=== PATIENT | female | born 1955 | race Caucasian/White ===

== ENCOUNTER → 2017-02-04 | Outpatient (CLI) | payer OTHER ==
[~2017-02-04] VITALS: Ht 160 cm; Wt 56.2 kg
[~2017-02-04] MED LIST: BAYER ASPIRIN325 M1 PO; CYMBALTA60 MG PO; DAILY MULTIPLE1 EACH PO; DIGOXIN125 MCG PO; DURAGESIC50 MCG TD; DURAGESIC75 MCG TD; ENALAPRIL MALEAT5 M1 PO; HYDROCODON-ACE1 EAC7 PO; LANOXIN,DIGI0.125 MG PO; LIPITOR80 MG PO; LO-DOSE ASPIRIN81 M2 PO; LOVASTATIN40 MG PO; METHYLPREDNISOLO4 MG PO; METOPROLOL SUCC25 MG PO; PLAVIX75 MG PO; SOTALOL160 MG PO; TOPROL XL50 MG PO; VICODIN ES 71 TABLET PO
== END | disposition home or self-care (01) ==
LOC: AMB 06:45
PROC: 0DJD8ZZ Inspection of Lower Intestinal Tract, Via Natural or Artificial Opening Endoscopic (ICD-10-PCS; principal; 2017-02-04)
DX: Z12.11 Encounter for screening for malignant neoplasm of colon (principal); I25.10 Atherosclerotic heart disease of native coronary artery without angina pectoris; Z95.810 Presence of automatic (implantable) cardiac defibrillator; J44.9 Chronic obstructive pulmonary disease, unspecified; F17.210 Nicotine dependence, cigarettes, uncomplicated; E78.00 Pure hypercholesterolemia, unspecified; I10 Essential (primary) hypertension; M51.26 Other intervertebral disc displacement, lumbar region; M54.30 Sciatica, unspecified side; C91.11 Chronic lymphocytic leukemia of B-cell type in remission; Z82.49 Family history of ischemic heart disease and other diseases of the circulatory system; Z83.3 Family history of diabetes mellitus; Z79.82 Long term (current) use of aspirin
CPT/HCPCS: 93005; J1170; J2250

== ENCOUNTER 2018-02-12 09:58 | Emergency (ER) | payer OTHER ==
[~2018-02-12] VITALS: Ht 157.5 cm; Wt 52.7 kg
[2018-02-12 10:37] LABS: HEMATOCRIT 45.9 % (36.0-46.0); HEMOGLOBIN 15.8 G/DL (11.9-15.5); MCHC 34.4 G/DL (30.0-36.0); MCV 93.1 FL (83-99); PLATELET COUNT 244 K/uL (156-360); RBC DIS.WIDTH-CV 12.7 % (11.8-14.6); RBC DIS.WIDTH-SD 43.9 % (39-53); RED BLOOD COUNT 4.93 M/uL (3.80-5.20); WHITE BLOOD COUNT 8.8 K/uL (4.1-10.2)
[2018-02-12 10:50] LABS: CHLORIDE 102 mEq/L (99-109); POTASSIUM 4.4 mEq/L (3.7-5.4); SODIUM 140 mEq/L (136-147)
[2018-02-12 10:51] LABS: GLUCOSE 116 mg/dL (70-99)
[2018-02-12 10:55] LABS: CREATININE 0.9 mg/dL (0.6-1.3); GFR ESTIMATE (CALCULATED) > 59 mL/min/
[2018-02-12 10:56] LABS: UREA NITROGEN (BUN) 16 mg/dL (9-23)
[2018-02-12 11:30] LABS: TROP-I INTERPRETATION NEGATIVE; TROPONIN-I < 0.01 ng/mL (0.0-0.30)
[2018-02-12] MEDS ORDERED: ZITHROMAX Z-PA250 MG PO (12:22)
[2018-02-12] MEDS ORDERED: PROVENTIL HFA6.7 GM IH (12:22)
[2018-02-12 12:43] VITALS: BP 111/70
== END 2018-02-12 12:55 | disposition home or self-care (01) ==
LOC: EME 09:58
PROVIDERS: Emergency Medicine
DX: J40 Bronchitis, not specified as acute or chronic (principal); I10 Essential (primary) hypertension; I25.2 Old myocardial infarction; E78.5 Hyperlipidemia, unspecified; Z95.0 Presence of cardiac pacemaker; Z95.5 Presence of coronary angioplasty implant and graft; F17.200 Nicotine dependence, unspecified, uncomplicated; Z79.82 Long term (current) use of aspirin; Z71.6 Tobacco abuse counseling
CPT/HCPCS: 71046; 80048; 84484; 85027; 93005; 99281; 99284